=== PATIENT | female | born 1950 | race American Indian/Alaskan Native ===

== ENCOUNTER 2017-06-12 12:02 | Outpatient (CLI) | payer MEDICARE ==
--- NOTE | 2017-06-12 12:19 | XRay Report ---
ROUTINE CHEST, TWO VIEWS: HISTORY: Cough. The trachea, heart, mediastinal contour, lung reid and bony thorax are unremarkable. IMPRESSION: Unremarkable chest x-ray.
== END 2017-06-12 12:03 | disposition home or self-care (01) ==
LOC: SPVIMAG 12:02
PROVIDERS: ATTEND Internal Medicine
DX: R05 Cough (principal)
CPT/HCPCS: 71046

== ENCOUNTER 2019-08-13 10:21 | Outpatient (CLI) | payer MEDICARE ==
--- NOTE | 2019-08-13 11:14 | XRay Report ---
CHEST 2 VIEWS INDICATION: COUGH R05. COMPARISON: 07/10/2017 FINDINGS: Support devices: None. Heart: Within normal limits. Pulmonary vasculature: Normal. Lungs/pleura: No acute air space or interstitial disease. No pneumothorax. Additional findings: Large multilevel osteophytes of the thoracic spine with relatively normal disc s paces. IMPRESSION: 1. No acute findings. 2. Large thoracic spine osteophytes suggest DISH. Signer Name: Shlomo Clayton MD Signed: 08/13/2019 11:09 AM Workstation Name: [id number]
== END 2019-08-13 10:22 | disposition home or self-care (01) ==
LOC: SPVIMAG 10:21
PROVIDERS: ATTEND Internal Medicine
DX: R05 Cough (principal); M25.78 Osteophyte, vertebrae
CPT/HCPCS: 71046